=== PATIENT | female | born 2000 | race Two or more races ===

== ENCOUNTER 2023-08-11 15:57 | Emergency (ER) | payer OTHER ==
[~2023-08-11] VITALS: Ht 167.6 cm; Wt 69.9 kg
[2023-08-11] MEDS ORDERED: ZONISAMIDE (16:32)
[2023-08-11] MEDS ORDERED: FOLIC ACID20 MG (16:32)
[2023-08-11] MEDS ORDERED: KEPPRA500 MG (16:32)
[2023-08-11 17:38] LABS: PH,URINE 6.5 (5.0-8.0); URINE APPEARANCE Cloudy; URINE BILIRRUBIN Negative (NEGATIVE); URINE BLOOD Negative; URINE COLOR Yellow; URINE EPITHELIAL CELLS 85.1 uL (0.0-38.8); URINE GLUCOSE Negative (NEGATIVE); URINE LEUKOCYTE Large; URINE NITRATE Negative; URINE PROTEIN Negative (NEGATIVE); URINE RBC 4.1 uL (0.0-20.8); URINE UROBILINOGEN 0.2 E.U./dl; URINE WBC 670.2 uL (0.0-23.2)
[2023-08-11 17:49] LABS: HEMATOCRIT 41.6 % (36.0-45.00); HEMOGLOBIN 14.2 g/dL (12.0-15.00); MEAN CELL VOLUME 93.3 fL (80.00-100.00); MEAN CORPUSCULAR HEMOGLOBIN 31.8 pg (27.00-32.0); MEAN CORPUSCULAR HGB CONC 34.1 g/dl (32.0-36.0); PLATELET COUNT 288 K/uL (150-450); RED BLOOD COUNT 4.46 M/uL (4.00-6.00); RED CELL DISTRIBUTION WIDTH 12.7 % (11.5-14.5)
[2023-08-11 18:07] LABS: INR 0.98; PARTIAL THROMBOPLASTIN TIME 28.7 SECONDS (22.0-34.0); PROTHROMBIN TIME 10.3 SECONDS (9.0-11.5)
[2023-08-11 18:11] LABS: CALCIUM 9.1 mg/dL (8.5-10.1); CREATININE SERUM 0.97 mg/dL (0.55-1.02); GFR 71.81; POTASSIUM 3.42 mEq/L (3.5-5.1)
[2023-08-11 18:14] LABS: URINE BACTERIA > 9821.5 uL (0.0-1933)
[2023-08-11] MEDS ORDERED: CIPRO500 MG PO (22:59)
[2023-08-11] MEDS ORDERED: INTESTINEX680 M1 PO (22:59)
[2023-08-11] MEDS ORDERED: PEPCID AC20 MG PO (22:59)
== END 2023-08-11 23:28 | disposition home or self-care (01) ==
LOC: ER 15:58
PROVIDERS: General Practice
DX: K52.9 Noninfective gastroenteritis and colitis, unspecified (principal); N39.0 Urinary tract infection, site not specified